=== PATIENT | female | born 1940 | race Caucasian/White ===

== ENCOUNTER → 2016-04-03 | Day surgery (SDC) | payer OTHER, BC ==
[~2016-04-03] VITALS: Ht 171.4 cm; Wt 79.4 kg
[~2016-04-03] MED LIST: ALEVE220 MG PO; BIOTIN300 MCG PO; COZAAR50 MG PO; GLYBURIDE2.5 MG PO; LOSARTAN POTAS100 MG PO; VITAMIN B-650 M1 PO; VOLTAREN 1% GE100 GM TP; ZETIA10 MG PO
[2016-04-03 07:54] LABS: POINT-OF-CARE METER ID UU13113696
[2016-04-03 09:59] LABS: POINT-OF-CARE METER ID UU13113819
== END | disposition home or self-care (01) ==
LOC: CATH 04-02 08:00
PROVIDERS: Internal Medicine Cardiovascular Disease
PROC: B2111ZZ Fluoroscopy of Multiple Coronary Arteries using Low Osmolar Contrast (ICD-10-PCS; principal; 2016-04-03)
PROC: 4A023N7 Measurement of Cardiac Sampling and Pressure, Left Heart, Percutaneous Approach (ICD-10-PCS; principal; 2016-04-03)
PROC: B2151ZZ Fluoroscopy of Left Heart using Low Osmolar Contrast (ICD-10-PCS; principal; 2016-04-03)
DX: I25.10 Atherosclerotic heart disease of native coronary artery without angina pectoris (principal); R94.39 Abnormal result of other cardiovascular function study; I10 Essential (primary) hypertension; E11.9 Type 2 diabetes mellitus without complications; R01.1 Cardiac murmur, unspecified; R53.82 Chronic fatigue, unspecified
CPT/HCPCS: 82948; C1760; C1769; C1887; C1894; J1644; J2250; J3010

== ENCOUNTER → 2016-12-25 | Outpatient (CLI) | payer OTHER, BC | END | disposition home or self-care (01) | LOC: EKG 15:14 | DX: Z01.810 Encounter for preprocedural cardiovascular examination (principal) | CPT/HCPCS: 93005 ==